=== PATIENT | male | born 1950 | race Caucasian/White ===

== ENCOUNTER 2018-06-11 09:26 | Emergency (ER) ==
[2018-06-11 09:30] VITALS: BP 165/92; TEMP 97.9; BMI 37.5
--- NOTE | 2018-06-11 09:38 | ED.PDOC ---
General ED Provider: Dr. AMENA ABURTO-ER Chief Complaint: Bite Stated Complaint: i got bit Time Seen by Physician: 09:35 Mode of Arrival: Walk-In Information Source: Patient Exam Limitations: No limitations Primary Care Provider: RENATA JASSO Nursing and Triage Documentation Reviewed and Agree: Yes Does patient meet sepsis criteria?: No System Inflammatory Response Syndrome: Not Applicable Sepsis Protocol: For patient's 13 years and over: Temp is 96.8 and below OR 101 and greater Pulse >90 BPM Resp >20/minute Acutely Altered Mental Status Are patient's symptoms suggestive of a new infection, such as: -Pneumonia -Skin, Soft Tissue -Endocarditis -UTI -Bone, Joint Infection -Implantable Device -Acute Abdominal Infection -Wound Infection -Meningitis -Blood Stream Catheter Infection -Unknown Skin Complaint Exam - Skin/Soft Tissue Complaint/Exam Onset/Duration: 24 hrs Symptoms Are: Still present Timing: Constant Initial Severity: Mild Current Severity: Mild Location: left thigh Character: Reports: Redness, Raised, Painful Aggravating: Reports: None Alleviating: Reports: None Associated Signs and Symptoms: Reports: Tenderness Related History: Reports: Insect bite/sting Recent Exposure to Others w/Similar Symptoms: No Skin Findings: Present: Erythema Differential Diagnoses: Other Review of Systems - Review Of Systems Constitutional: Reports: No symptoms Eyes: Reports: No symptoms Ears, Nose, Mouth, Throat: Reports: No symptoms Respiratory: Reports: No symptoms Cardiac: Reports: No symptoms GI: Reports: No symptoms, Other : Reports: No symptoms Musculoskeletal: Reports: No symptoms Skin: Reports: Lumps Neurological: Reports: No symptoms Endocrine: Reports: No symptoms Hematologic/Lymphatic: Reports: No symptoms All Other Systems: Reviewed and Negative Past Medical History - Past Medical History Previously Healthy: No Endocrine: Reports: Unknown Cardiovascular: Reports: Unknown Respiratory: Reports: Unknown Hematological: Reports: Unknown Gastrointestinal: Reports: Unknown Genitourinary: Reports: Unknown Neuro/Psych: Reports: Unknown Musculoskeletal: Reports: Unknown Cancer: Reports: Unknown - Surgical History General Surgical History: Reports: Unknown - Family History Family History: Reports: Unknown - Social History Smoking Status: Former smoker Hx Substance Use: No Alcohol Screening: None - Immunizations Tetanus Shot up to Date: No Physical Exam - Physical Exam Appearance: Well-appearing, No pain distress, Well-nourished Eyes: YESI, EOMI, Conjunctiva clear ENT: Ears normal Neck: Supple Respiratory: Airway patent, Breath sounds clear, Breath sounds equal, Respirations nonlabored Cardiovascular: RRR, Pulses normal, No rub, No murmur GI/: Soft Musculoskeletal: Normal strength Skin: Warm, Dry, Normal color (noted ring of erythema 6cm with central area of necrosis measuring 0.5cm) Neurological: Sensation intact, Motor intact, Reflexes intact, Cranial nerves intact, Alert, Oriented Psychiatric: Affect appropriate, Mood appropriate Critical Care Note - Critical Care Note Total Time (mins): 0 Course - Course Vital Signs: Temp Pulse Resp BP Pulse Ox 06/11/18 09:26 97.9 F 72 18 165/92 H 96 Departure - Departure Time of Disposition: 09:37 Disposition: HOME SELF-CARE Discharge Problem: Spider bite Qualifiers: Encounter type: initial encounter Injury intent: accidental or unintentional Qualified Code(s): T63.301A - Toxic effect of unspecified spider venom, accidental (unintentional), initial encounter Instructions: Brown Recluse Spider Bite (ED) Condition: Good Pt referred to PMD for follow-up: No IPMP verified?: No Additional Instructions: clindamycin 300mg tid x 7 days#21--medrol dose pack--monitor bs while on steroids Allergies/Adverse Reactions: Allergies No Known Allergies Allergy (Unverified 06/11/18 09:30) Disposition Discussed With: Patient, Family
== END 2018-06-11 09:50 | disposition home or self-care (01) ==
LOC: ED 09:26
DX: T63.301A Toxic effect of unspecified spider venom, accidental (unintentional), initial encounter (principal)
CPT/HCPCS: 99282

== ENCOUNTER 2018-08-11 06:31 | Outpatient (CLI) ==
--- NOTE | 2018-08-11 10:51 | NM ---
Cardiac Stress Test HISTORY: Chest pain, shortness of breath, previous triple bypass. COMPARISON: None of this type. TECHNIQUE: Resting: The patient was injected with 3.5 mCi of thallium 201 chloride intravenously after which a "resting" SPECT study of the heart was performed. Stress: The patient was stressed using a Amarjit protocol and at the appropriate time injected with 23 .5 mCi of 99m technetium Sestamibi (Cardiolite) after which a "stress" SPECT study of the heart was p erformed. Gated images of the heart were also obtained to assess wall motion and calculate ejection f raction. For details of the stress protocol employed, reference is made to the separate report of e performing physician. FINDINGS: The stress perfusion images demonstrate region of decreased activity in the distal anteros eptal wall which improves at rest consistent with ischemia. The resting perfusion images demonstrate no evidence of significant redistribution/ischemia elsewhere. The left ventricular ejection fraction (LVEF) is 49 %. IMPRESSION: 1. Left ventricular myocardial perfusion demonstrates evidence of ischemia involving the distal ante roseptal wall. 2. The left ventricular ejection fraction (LVEF) is 49 %.
--- NOTE | 2018-08-15 12:08 | STECHOSEST ---
Date of Test: 08/11/18 Ordering Physician: DR. 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 Reason for Exam: CHEST PAIN, SOB, CABG-TRIPLE BYPASS Smoking History: QUIT 30 YRS AGO Height: 69" Weight: 250 LBS Current Medications: METFORMIN, GLIMEPIRIDE, OLMESARTAN MEDOXOMIL, METOPROLOL, ROSUVASTATIN, ASA Resting EKG: SINUS RHYTHM/ NO ACUTE CHANGES Target Heart Rate: 130/ 162 BPM S-T SEGMENT STAGE MPH/GRADE HEART RATE BPM BLOOD PRESSURE mmhg RHYTHM +/- ELEVATION DEPRESSION SYMPTOMS,COMMENTS At Rest 60 BPM 128/84 MMHG SR X NONE 1 1.7/10% 91 BPM 138/78 MMHG SR X NONE 2 2.5/12% 152/82 MMHG SR X NONE 3 3.4/14% 4 4.2/16% 5 5.0/18% Immediately after 140 BPM SR X SVT/ASYMPTOMATIC Minutes Post Exercise 5:00 66 BPM 132/90 MMHG SR X NO COMMENTS Minutes Post Exercise Total Time: 5:29 Maximum Heart Rate Reached: 140 BPM Reason for Termination: SVT/ASYMPTOMATIC 97% Oxygen saturation on room air with exercises INTERPRETATION 1. NO EVIDENCE OF ISCHEMIA BY ST-T WAVE 2. NO CHEST PAIN OR DISCOMFORT 3. SVT AT THE HEIGHT OF EXERCISE WITH RATE 140 BPM, BROKE WITH DEEP BREATH--FEW PAC'S AFTER SVT BROKE 4. BLOOD PRESSURE RESPONSE: NORMAL NORMAL LEFT VENTRICULAR CONTRACTILITY--RESTING AND POST EXERCISE MTDD
--- NOTE | 2018-08-15 12:10 | STRESSECHO ---
Date of Test: [] Ordering Physician: [] Occupation:[] Reason for Exam: [] Smoking History: [] Height: [] Weight: [] Current Medications: [] Physical Findings: [] Resting EKG: [] Target Heart Rate: [] S-T SEGMENT STAGE MPH/GRADE HEART RATE BPM BLOOD PRESSURE MMHG RHYTHM +/- ELEVATION DEPRESSION SYMPTOMS,COMMENTS AT REST [] [] [] [] [] [] [] 1 1.7/10% [] [] [] [] [] [] [] 2 2.5/12% [] [] [] [] [] [] [] 3 3.4/14% [] [] [] [] [] [] [] 4 4.2/16% [] [] [] [] [] [] [] 5 5.0/18% [] [] [] [] [] [] [] Immediately After [] [] [] [] [] [] [] Minutes Post Exercise [] [] [] [] [] [] [] [] Minutes Post Exercise [] [] [] [] [] [] [] [] DURATION OF EXERCISE: [] MAXIMUM HEART RATE REACHED: [] REASON FOR TERMINATION: [] INTERPRETATION: 1. [] 2. [] 3. [] 4. [] MTDD
--- NOTE | 2018-08-15 12:15 | ECHO2D ---
Date of Exam: 08/11/18 Ordering Physician: DR. RENATA JASSO Room #: OP Reason for Echo: CHEST PAIN, SOB, CABG-TRIPLE BYPASS M-Mode Normal Adult Results LV Dimensions Normal Adult Results AoV Opening excursions >1.6 >1.6 LVEDD-base- 3.5-5.8 5.1 Ao root dimensions 2.0-3.7 3.2 LVESD-base- 3.1-4.6 L. Atrium dimensions 1.9-3.8 4.4 Post. Wall thickness 0.8-1.1 1.2 IV septum (thickness) 0.7-1.2 1.2 Post. Wall excursion 0.72-1.3 NORMAL Septal motion NORMAL Systolic motion R. Ventricular cavity 1.5-2.0 NORMAL LVEF 60% 55% Paradoxical septal wall motion NORMAL 2-D : ENLARGED LEFT ATRIAL CAVITY--NORMAL LEFT VENTRICULAR CONTRACTILITY-- NORMAL VALVES, NO EFFUSION, NO THROMBUS M-MODE: MV: NORMAL AV: NORMAL TV: NORMAL PV: CHAMBER SIZE: ENLARGED LEFT ATRIAL CAVITY WALL MOTION: NORMAL PERICARDIUM: NORMAL INTERPRETATION: 1. LEFT VENTRICULAR HYPERTROPHY WITH ENLARGED LEFT ATRIAL CAVITY 2. NORMAL LEFT VENTRICULAR CONTRACTILITY 3. NORMAL VALVES MTDD
--- NOTE | 2018-08-15 14:12 | ECHOSTRESS ---
Date of Exam: 08/11/18 Ordering Physician: DR. RENATA JASSO Reason for Echo: CHEST PAIN, SOB, TRIPLE BYPASS 8 YRS AGO, STRESS TEST--NO ISCHEMIA M-Mode Normal Adult Results LV Dimensions Normal Adult Results AoV Opening excursions >1.6 LVEDD-base- 3.5-5.8 Ao root dimensions 2.0-3.7 LVESD-base- 3.1-4.6 L. Atrium dimensions 1.9-3.8 Post. Wall thickness 0.8-1.1 IV septum (thickness) 0.7-1.2 Post. Wall excursion 0.72-1.3 Septal motion Systolic motion R. Ventricular cavity 1.5-2.0 LVEF 60% Paradoxical septal wall motion 2-D: NORMAL LEFT VENTRICULAR CONTRACTILITY--RESTING AND POST EXERCISE M-MODE: MV: AV: TV: PV: CHAMBER SIZE: WALL MOTION: NORMAL LEFT VENTRICULAR CONTRACTILITY--RESTING AND POST EXERCISE PERICARDIUM: INTERPRETATION: 1. NORMAL LEFT VENTRICULAR CONTRACTILITY--RESTING AND POST EXERCISE MTDD
== END 2018-08-11 06:32 | disposition home or self-care (01) ==
LOC: CAR 06:31
PROVIDERS: ATTEND Internal Medicine
DX: R06.02 Shortness of breath (principal); R07.9 Chest pain, unspecified
CPT/HCPCS: 93005; 93010